=== PATIENT | female | born 1945 | race Caucasian/White ===

== ENCOUNTER 2019-05-24 15:17 | Emergency (ER) | payer BC ==
[~2019-05-24] VITALS: Ht 167.6 cm; Wt 78.0 kg
[2019-05-24 17:24] VITALS: BP 172/81
--- NOTE | 2019-05-24 17:51 | PHYS DOC ---
Adult General Chief Complaint Chief Complaint: FINGER INJURY HPI HPI Patient is a 73 year old [Female] who presents with [Right middle finger swelling and pain. Patient states she had been working on cleaning at home, had a large splinter into her finger from an old wooden doors. Reports the splinter seemed to break up and her finger, and she has been picking at them trying to pick it out over the past couple days. Reports this morning when she had taken out a splinter, she had found some tenderness and swelling and has noted some pus around her finger since that time. States she has also noticed some redness spreading up her right arm. Does report her right arm swollen, she has history of lymph node removal following cancer surgery, to the right arm.] (AILEEN WONG APRN) Review of Systems Review of Systems Constitutional: Denies fever or chills [] Eyes: Denies change in visual acuity, redness, or eye pain [] HENT: Denies nasal congestion or sore throat [] : Denies dysuria or hematuria [] Musculoskeletal: Denies back pain or joint pain [] Integument: Reports rash to right arm, reports swelling to right third digit distally.[] Neurologic: Denies headache, focal weakness or sensory changes [] Endocrine: Denies polyuria or polydipsia [] All other systems were reviewed and found to be within normal limits, except as documented in this note. (AILEEN WONG APRN) Allergies Allergies Allergies Coded Allergies Type Severity Reaction Last Updated Verified No Known Drug Allergies 05/24/19 No (JEREMIAH WARD DO) Physical Exam Physical Exam Constitutional: Well developed, well nourished, no acute distress, non-toxic appearance. [] Cardiovascular:Heart rate regular rhythm, no murmur [] Lungs & Thorax: Bilateral breath sounds clear to auscultation [] Abdomen: Bowel sounds normal, soft, no tenderness, no masses, no pulsatile masses. [] Skin: Right third digit DIP noted erythematous, swollen, tender. Noted scarring to hadn't digit where there appears she has been removing splinters. No purulence noted at this time[] Back: No tenderness, no CVA tenderness. [] Extremities: No tenderness, no cyanosis, no clubbing, ROM intact, no edema. [] Neurologic: Alert and oriented X 3, normal motor function, normal sensory function, no focal deficits noted. [] Psychologic: Affect normal, judgement normal, mood normal. [] (AILEEN WONG APRN) Current Patient Data Vital Signs Vital Signs Date Time Temp Pulse Resp B/P (MAP) Pulse Ox O2 Delivery O2 Flow Rate FiO2 05/24/19 17:24 97.4 56 16 172/81 (111) 98 Room Air 97.4 (JEREMIAH WARD DO) EKG EKG [] (AILEEN WONG APRN) Radiology/Procedures Radiology/Procedures IMPRESSION: Diffuse soft tissue swelling of the third digit without underlying fracture or radiopaque foreign body identified. Electronically signed by: Becky Wing MD (05/24/2019 6:20 PM) [facility] [] (AILEEN WONG APRN) Course & Med Decision Making Course & Med Decision Making Pertinent Labs and Imaging studies reviewed. (See chart for details) [Discussed imaging findings without noted foreign bodies. We'll administer antibiotics, advised patient to keep area warm, and if it continues to drain and is appropriate. Follow-up with primary care provider patient with no further questions or concerns, take Tylenol or ibuprofen for discomfort] (AILEEN WONG APRN) Dragon Disclaimer Dragon Disclaimer This electronic medical record was generated, in whole or in part, using a voice recognition dictation system. (AILEEN WONG APRN) Departure Departure Impression: Primary Impression: Cellulitis of finger of right hand Disposition: 01 HOME, SELF-CARE Condition: GOOD Referrals: JEMIMA HERNÁNDEZ MD (PCP) Patient Instructions: Skin Infections Additional Instructions: As we discussed, did not poke into the lesion. If it drains out pus, that is just fine. He can take Tylenol or ibuprofen for discomfort. Make sure you take antibiotics for the entire duration. Follow-up with her primary care provider as needed Scripts Cephalexin (CEPHALEXIN) 500 Mg Tablet 1 TAB PO TID, #30 TAB Prov: AILEEN WONG APRN 05/24/19 Attending Signature Attending Signature I have reviewed the PA/RETAIL MARKET[employer] EXECUTIVE's note and plan of care. I was available for consultation as needed during the patient's visit in the emergency department. I agree with the clinical impression, plan, and disposition. (JEREMIAH WARD DO) AILEEN WONG APRN May 24, 2019 17:51 JEREMIAH WARD DO May 25, 2019 21:24
--- NOTE | 2019-05-24 18:23 | RAD ---
Exam: Right hand 3 views INDICATION: Swelling, foreign body to third finger TECHNIQUE: Frontal, lateral and oblique views of the right hand Comparisons: None FINDINGS: Bone mineralization is normal. Diffuse soft tissue swelling of the third digit is noted. No acute fracture is seen. 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 IMPRESSION: Diffuse soft tissue swelling of the third digit without underlying fracture or radiopaque foreign body identified. Electronically signed by: Becky Wing MD (05/24/2019 6:20 PM) [facility] [place]
[2019-05-24] MEDS ORDERED: CEPH500T PO (18:53)
== END 2019-05-24 18:57 | disposition home or self-care (01) ==
LOC: ER 15:17
DX: L03.011 Cellulitis of right finger (principal)
CPT/HCPCS: 73130; 99284